=== PATIENT | female | born 1960 | race Caucasian/White ===

== ENCOUNTER → 2016-12-06 | Outpatient (CLI) | payer OTHER | LOC: RAD 12:23 | DX: M54.9 Dorsalgia, unspecified (principal); M47.816 Spondylosis without myelopathy or radiculopathy, lumbar region | CPT/HCPCS: 72110 ==

== ENCOUNTER → 2020-09-29 | Outpatient (CLI) | payer OTHER ==
[~2020-09-29] MED LIST: AMLODIPINE BESYL5 MG PO; CITALOPRAM HBR20 MG PO; DECADRON6 MG PO; DOXYCYCLINE HY100 M2 PO; FLONASE 0.05% N16 GM; LEVAQUIN750 MG PO; LEVOFLOXACIN750 MG PO; MEDROL4 MG PO; NORVASC 5 MG TAB5 MG PO; PRAVACHOL20 MG PO; PRINIVIL20 MG PO; PROAIR DIGIHAL90 MCG INH; PROZAC 20 MG CA20 MG PO; ROPINIROLE HCL2 MG PO; TESSALON PERLE100 MG PO; VITAMIN D21250 MCG PO; ZESTRIL20 MG PO
== END ==
LOC: KOH-I 08:55
DX: D69.6 Thrombocytopenia, unspecified (principal); K76.0 Fatty (change of) liver, not elsewhere classified; R16.1 Splenomegaly, not elsewhere classified
CPT/HCPCS: 76705

== ENCOUNTER 2020-11-04 11:14 | Emergency (ER) | payer OTHER ==
[~2020-11-04] VITALS: Ht 160 cm; Wt 124.7 kg
[~2020-11-04 11:14] MED LIST changes: -AMLODIPINE BESYL5 MG PO; -DECADRON6 MG PO; -LEVOFLOXACIN750 MG PO; -PROAIR DIGIHAL90 MCG INH; -PROZAC 20 MG CA20 MG PO; -VITAMIN D21250 MCG PO; -ZESTRIL20 MG PO
[2020-11-04 12:33] LABS: HEMOGLOBIN 14.4 gm/dl (12.3-15.3); RED BLOOD COUNT 4.97 M/UL (4.00-5.10); WHITE BLOOD COUNT 4.3 K/UL (4.5-11.0)
[2020-11-04 13:05] LABS: BUN/CREATININE RATIO 16 (0-10)
== END 2020-11-04 16:40 | disposition home or self-care (01) ==
LOC: ER1 11:14
PROVIDERS: Emergency Medicine
DX: U07.1 COVID-19 (principal); J12.82 Pneumonia due to coronavirus disease 2019; Z20.822 Contact with and (suspected) exposure to COVID-19; I10 Essential (primary) hypertension; Z88.0 Allergy status to penicillin; Z88.5 Allergy status to narcotic agent
CPT/HCPCS: 0240U; 71045; 80053; 82550; 82553; 83874; 83880; 84484; 85025; 85379; 93005; 99285; M0239

== ENCOUNTER 2020-11-09 13:52 | Inpatient (IN) | payer OTHER ==
[~2020-11-09] VITALS: Ht 160 cm; Wt 126.1 kg
[2020-11-09 15:16] LABS: HEMOGLOBIN 14.1 gm/dl (12.3-15.3); RED BLOOD COUNT 4.88 M/UL (4.00-5.10); WHITE BLOOD COUNT 6.9 K/UL (4.5-11.0)
[2020-11-09 16:14] LABS: BUN/CREATININE RATIO 14 (0-10)
[2020-11-09] MEDS ORDERED: ZESTRIL20 MG PO (17:09)
[2020-11-09] MEDS ORDERED: PRAVACHOL20 MG PO (17:10)
[2020-11-09] MEDS ORDERED: PROZAC 20 MG CA20 MG PO (17:10)
[2020-11-09] MEDS ORDERED: VITAMIN D21250 MCG PO (17:10)
[2020-11-09] MEDS ORDERED: ROPINIROLE HCL2 MG PO (17:11)
[2020-11-10 05:41] LABS: HEMOGLOBIN 13.4 gm/dl (12.3-15.3); RED BLOOD COUNT 4.69 M/UL (4.00-5.10); WHITE BLOOD COUNT 5.5 K/UL (4.5-11.0)
[2020-11-10 06:03] LABS: BUN/CREATININE RATIO 16 (0-10)
[2020-11-11 09:13] LABS: HEMOGLOBIN 12.9 gm/dl (12.3-15.3); RED BLOOD COUNT 4.45 M/UL (4.00-5.10)
[2020-11-11 09:21] LABS: WHITE BLOOD COUNT 11.4 K/UL (4.5-11.0)
[2020-11-11 09:36] LABS: BUN/CREATININE RATIO 24 (0-10)
[2020-11-12 03:55] LABS: HEMOGLOBIN 12.8 gm/dl (12.3-15.3); RED BLOOD COUNT 4.53 M/UL (4.00-5.10); WHITE BLOOD COUNT 9.6 K/UL (4.5-11.0)
[2020-11-12 04:17] LABS: BUN/CREATININE RATIO 25 (0-10)
[2020-11-13 03:55] LABS: HEMOGLOBIN 12.8 gm/dl (12.3-15.3); RED BLOOD COUNT 4.44 M/UL (4.00-5.10); WHITE BLOOD COUNT 7.6 K/UL (4.5-11.0)
[2020-11-13 04:09] LABS: BUN/CREATININE RATIO 21 (0-10)
[2020-11-13] MEDS ORDERED: AMLODIPINE BESYL5 MG PO (11:26)
[2020-11-13] MEDS ORDERED: DECADRON6 MG PO (11:26)
[2020-11-13] MEDS ORDERED: PROAIR DIGIHAL90 MCG INH (11:26)
[2020-11-13] MEDS ORDERED: LEVOFLOXACIN750 MG PO (11:26)
--- NOTE | 2020-11-13 15:52 | NUR ---
PATIENT OXYGEN LEVEL DROPPED TO 80% WHILE SLEEPING. DR. DUARTE AWARE. [facility]
== END 2020-11-13 21:56 | disposition home or self-care (01) | DRG 177 ==
LOC: ER1 13:52 → CDU 16:40 → M/S 16:40
PROVIDERS: Emergency Medicine; Internal Medicine; Physician Assistant; ADMIT Family Medicine
PROC: 8E0ZXY6 Isolation (ICD-10-PCS; principal; 2020-11-09)
PROC: XW13325 Transfusion of Convalescent Plasma (Nonautologous) into Peripheral Vein, Percutaneous Approach, New Technology Group 5 (ICD-10-PCS; 2020-11-09)
PROC: XW033E5 Introduction of Remdesivir Anti-infective into Peripheral Vein, Percutaneous Approach, New Technology Group 5 (ICD-10-PCS; 2020-11-09)
PROC: 3E0333Z Introduction of Anti-inflammatory into Peripheral Vein, Percutaneous Approach (ICD-10-PCS; 2020-11-09)
PROC: XW033F6 Introduction of Bamlanivimab Monoclonal Antibody into Peripheral Vein, Percutaneous Approach, New Technology Group 6 (ICD-10-PCS; 2020-11-09)
DX: U07.1 COVID-19 (principal); J12.82 Pneumonia due to coronavirus disease 2019; J96.01 Acute respiratory failure with hypoxia; J15.6 Pneumonia due to other Gram-negative bacteria; Z68.42 Body mass index [BMI] 45.0-49.9, adult; F32.9 Major depressive disorder, single episode, unspecified; F41.9 Anxiety disorder, unspecified; E78.5 Hyperlipidemia, unspecified; G47.30 Sleep apnea, unspecified; E55.9 Vitamin D deficiency, unspecified; I10 Essential (primary) hypertension; Z88.0 Allergy status to penicillin; Z88.6 Allergy status to analgesic agent; E66.01 Morbid (severe) obesity due to excess calories; Z90.710 Acquired absence of both cervix and uterus; Z87.891 Personal history of nicotine dependence
CPT/HCPCS: 36415; 36600; 71045; 80053; 82550; 82553; 82728; 82803; 83615; 83874; 83880; 84484; 85025; 85027; 85379; 86900; 86901; 86927; 93005; 94640; 94664; 94760; 96374; 96375; 99285; J0360; J1100; J1650; J1956; J7030; M0239; Q9967

== ENCOUNTER → 2020-12-23 | Outpatient (CLI) | payer OTHER ==
[~2020-12-23] MED LIST changes: +AMLODIPINE BESYL5 MG PO; +DECADRON6 MG PO; +LEVOFLOXACIN750 MG PO; +PROAIR DIGIHAL90 MCG INH; +PROZAC 20 MG CA20 MG PO; +VITAMIN D21250 MCG PO; +ZESTRIL20 MG PO
== END ==
LOC: EXRD 12:51
DX: M25.561 Pain in right knee (principal); M79.661 Pain in right lower leg; M71.21 Synovial cyst of popliteal space [Baker], right knee; M17.11 Unilateral primary osteoarthritis, right knee
CPT/HCPCS: 73560; 93971

== ENCOUNTER → 2021-04-26 | Outpatient (CLI) | payer OTHER | LOC: KOH-I 11:53 | DX: M25.512 Pain in left shoulder (principal); M89.8X1 Other specified disorders of bone, shoulder | CPT/HCPCS: 73000; 73030 ==

== ENCOUNTER → 2021-06-18 | Outpatient (CLI) | payer OTHER | LOC: EMI 12:57 | DX: H54.3 Unqualified visual loss, both eyes (principal) | CPT/HCPCS: 70551 ==

== ENCOUNTER → 2021-06-21 | Outpatient (CLI) | payer OTHER | LOC: EXRD 11:11 | DX: G45.3 Amaurosis fugax (principal) | CPT/HCPCS: 93880 ==

== ENCOUNTER → 2021-08-04 | Outpatient (CLI) | payer OTHER | LOC: KOH-I 12:52 | DX: J32.9 Chronic sinusitis, unspecified (principal); M27.40 Unspecified cyst of jaw; J34.2 Deviated nasal septum | CPT/HCPCS: 70486 ==

== ENCOUNTER → 2021-09-15 | Outpatient (CLI) | payer OTHER | LOC: KOH-I 09-13 13:45 | DX: M75.122 Complete rotator cuff tear or rupture of left shoulder, not specified as traumatic (principal); S43.432A Superior glenoid labrum lesion of left shoulder, initial encounter; M75.52 Bursitis of left shoulder | CPT/HCPCS: 73221 ==

== ENCOUNTER → 2021-12-14 | Outpatient (CLI) | payer OTHER | LOC: RAD 11:20 | DX: J30.81 Allergic rhinitis due to animal (cat) (dog) hair and dander (principal); J30.1 Allergic rhinitis due to pollen; J30.89 Other allergic rhinitis; H10.45 Other chronic allergic conjunctivitis; J20.9 Acute bronchitis, unspecified; J98.9 Respiratory disorder, unspecified | CPT/HCPCS: 71046 ==

== ENCOUNTER 2021-12-26 22:35 | Emergency (ER) | payer OTHER ==
[2021-12-26 23:27] LABS: HEMOGLOBIN 13.2 gm/dl (12.3-15.3); RED BLOOD COUNT 4.43 M/UL (4.00-5.10)
== END 2021-12-27 03:40 | disposition home or self-care (01) ==
LOC: ER1 22:35
PROVIDERS: Student in an Organized Health Care Education/Training Program
DX: R07.89 Other chest pain (principal); I10 Essential (primary) hypertension; E11.9 Type 2 diabetes mellitus without complications; I11.9 Hypertensive heart disease without heart failure; Z88.0 Allergy status to penicillin
CPT/HCPCS: 71045; 80053; 82550; 82553; 84484; 85025; 85379; 93005; 96374; 99285; J1885